=== PATIENT | female | born 1940 | race Caucasian/White ===

== ENCOUNTER 2016-09-16 18:50 | Inpatient (IN) | payer MEDICARE, OTHER ==
[~2016-09-16] VITALS: Ht 165.1 cm; Wt 88.9 kg
[2016-09-16 19:11] VITALS: BP 153/74; PULSE 83; RESP 16; O2SAT 93
--- NOTE | 2016-09-16 19:24 | ED.REPORT ---
HPI-Altered Mental Status Date of Service Sep 16, 2016 ED Provider: Charles Gómez MD Pt is a 76 year old female with a history of right hip replacement, HTN, DM, lap band, and cancer (5x) who presents to the ED via EMS for confusion onset yesterday. Family c/o associated change in mental status. They also report low back pain that they associate with prior surgery. EMS report fever. The family denies vomiting, SOB, cough, headache, and abdominal pain. The EMS found the pt slumped over while on the commode next to her bed. Family describes the pt's change in mental status as "incoherent and staring out into space." Also had a temp at home of 100>2 per EMS. Her family members also state that the pt was prescribed Lorazepam (1 mg up to 3x a day), but they suggest that she may be taking more due to the pt's forgetfulness. Nursing Notes Stated Complaint: ALTERED MENTAL STATUS Chief Complaint: Neuro Symptoms/ Deficits Nursing Notes Reviewed: Yes Allergies: Coded Allergies: No Known Allergies (Verified , 10/30/03) Uncoded Allergies: NKA (Allergy, Unknown, 10/30/03) NKFA (Allergy, Unknown, 10/30/03) No Known Allergies (Allergy, Unknown, 10/30/03) General Time Seen by MD: 19:23 Chief Complaint Confused Hx Obtained From: Patient, Spouse, EMS Arrived By: Ambulance Sudden in Onset?: No Onset Occurred: 5 - 8 hours ago Symptom Duration: Since onset Location: : Back lower Quality: Painful Severity: Current: Moderate Severity: Maximum: Moderate Recent Healthcare: No recent doctor visit, No recent hospitalization Similar Sx Previous: No Past Medical History Past Medical History Notes: PCP - Ashia Blank Past Medical History arthritis frequent UTIs "longstanding history of constipation" [place] 1x - 1980 Lap band - can only eat liquids Skin cancer (5x) - thyroid, skin on leg, ovarian Sleep apnea - uses CPAP Reports: Diabetes mellitus, Hypertension Reports: Depression Past Surgical History Back Reports: Hysterectomy Family History non-contributory Smoking History Never Smoker Social History Alcohol Use: Denies alcohol use Drug Use: Denies drug use Ambulatory Status Independent Review of Systems Constitutional: Reports: Fever Respiratory: Denies: Non-productive cough, Shortness of breath GI: Denies: Abdominal pain, Vomiting Neurologic: Reports: Problem walking, Denies: Headache Psychiatric: Reports: Change mental status, Confusion Complete sys rev & neg: except as marked. Musculoskeletal: Reports: Back pain Physical Exam Initial Vital Signs Vital Signs (First) Date Time Temp Pulse Resp B/P Pulse Ox O2 Delivery O2 Flow Rate FiO2 09/16/16 19:11 37.2 83 16 153/74 93 Room Air Initial VS: Reviewed ENT: Mucous membranes moist Extremities: Vascular intact, Neuro intact Skin: Warm, Dry, No cyanosis General/Constitutional: Awake, Alert Head / Eyes: Atraumatic, Normocephalic, PERRL Neck: Supple Respiratory / Chest: Atraumatic, Breath sounds NL, Breath sounds = bilat Cardiovascular: Heart rate NL, Regular rhythm Heart Sounds / Murmur: Positive: Systolic murmur present.. (III/ - upper left sternal border) NEUROLOGIC: Oriented x1. Motor intact. Abdomen: Atraumatic, Soft, Non-tender, BS normoactive Interpretation & Diagnostics Lab Results Interpretation Result Diagram: 09/16/16 1900 09/16/16 1900 Test 09/16/16 19:00 09/16/16 20:37 09/16/16 21:36 White Blood Count 19.9th/mm3 (3.8-10.1) Red Blood Count 5.06mil/mm3 (3.90-5.20) Hemoglobin 13.3g/dL (12.0-15.6) Hematocrit 41.6% (35.0-46.0) Mean Corpuscular Volume 82.2fL (81-100) Mean Corpuscular Hemoglobin 26.3pg (27.0-35.0) Mean Corpuscular Hemoglobin Concent 32.0% (32.0-37.0) Red Cell Distribution Width 14.7% (12.3-15.4) Platelet Count 345bil/L (150-400) Neutrophils (%) (Auto) 77.5% (40-74) Lymphocytes (%) (Auto) 14.5% (14-46) Monocytes (%) (Auto) 7.2% (4-12) Eosinophils (%) (Auto) 0% (0-5) Basophils (%) (Auto) 0.3% (0-3) Sodium Level 137mEq/L (134-144) Potassium Level 3.9mEq/L (3.5-5.2) Chloride Level 94mEq/L (97-108) Carbon Dioxide Level 22mmol/L (18-29) Blood Urea Nitrogen 12mg/dL (8-27) Creatinine 0.77mg/dL (0.57-1.00) Estimat Glomerular Filtration Rate 104mL/min (>59) Glucose Level 168mg/dL (60-99) Calcium Level 9.3mg/dL (8.5-10.1) Total Bilirubin 0.7mg/dL (0.0-1.2) Aspartate Amino Transf (AST/SGOT) 35U/L (0-50) Alanine Aminotransferase (ALT/SGPT) 10U/L (0-32) Alkaline Phosphatase 129U/L (25-165) Total Protein 8.3g/dL (6.4-8.4) Albumin 3.6g/dL (3.4-5.0) Procalcitonin 0.16ng/mL (0.00-0.08) Alcohols < 10mg/dL (0-10) Urine Color Yellow (YELLOW) Urine Appearance Clear (CLEAR,HAZY) Urine pH 6.0 (5.0-8.0) Urine Specific [place] 1.015 (1.003-1.035) Urine Protein Negativemg/dL (NEG,TRACE) Urine Glucose (UA) Negativemg/dL (NEGATIVE) Urine Ketones Negativemg/dL (NEGATIVE) Urine Occult Blood Trace (NEGATIVE) Urine Nitrite Negative (NEGATIVE) Urine Bilirubin Negative (NEGATIVE) Urine Urobilinogen 1.0mg/dL (NORMAL) Urine Leukocyte Esterase Negative (NEGATIVE) Urine RBC 0-2/hpf (0-2) Urine WBC 0-5/hpf (0-5) Urine Epithelial Cells Moderate/hpf (NONE-MOD) Urine Crystals None seen (NONE SEEN) Urine Bacteria Many/hpf (NONE-FEW) Urine Hyaline Casts None/lpf (NONE) Urine Granular Casts None seen (NONE SEEN) Urine Waxy Casts None seen (NONE SEEN) Urine Red Blood Cell Casts None seen (NONE SEEN) Urine White Blood Cell Casts None seen (NONE SEEN) Urine Mucus None seen (None Seen) Urine Trichomonas None seen (NONE SEEN) Urine Yeast None (NONE SEEN) Urinalysis Comment None Urine Culture Reflexed Indicated Lactic Acid Level 1.5mmol/L (0.4-2.0) ECG Interpretation ECG Interpretation: Sinus rhythm with a rate of 81. RBBB and LAFB. No acute changes. Time: 19:35 Interpreted by: ED physician X-Ray Chest Interpretation Chest Xray Interpretation: IMPRESSION: Acute disease is not seen a semiupright portable chest. Probable small hiatal hernia. Dictated by: Chava Tavera M.D. on 09/16/2016 at 19:47 View: Portable, 1 view Interpretation / Wet Read by: Interpret - Radiologist CT Head Interpretation IMPRESSION: No acute intracranial abnormality is seen. Moderate atrophy and microvascular ischemic change from age and is present. Dictated by: Chava Tavera M.D. on 09/16/2016 at 20:02 Study: Head CT no contrast Interpretation / Wet Read by: Interpret - Radiologist Re-Eval/Medical Decision Med Decision/Clinical Course 76-year-old female with decreased mental status and reportedly a fever. Here she definitely has some decreased mental status, neuro exam is otherwise nonfocal. Meningitis was considered however she has no photophobia and no stiff neck no headache or vomiting. I felt based on that information pursuing an LP was unlikely to be beneficial. Cultures have been obtained, admitted to hospitalist service for further evaluation. Source of Hx: Old records Re-Evaluation/Progress #1: Time of Eval: 20:22 Re-Evaluation/Progress Note: Pt rechecked. Informed family of plan for admission. Family understands and agrees with plan for admission. Code status discussed with family; they want full code. All questions addressed. Re-Evaluation/Progress #2: Time of Eval: 22:36 Re-Evaluation/Progress Note: Pt rechecked. Updated family on progress involving pt's care. All questioned addressed. Consultation : Referral / Consult Name: Shari Mckinnon MD Call Returned at: 23:00 Power Plant Inspector: Will see patient, Agrees with eval, Agrees with plan, Accepts admit Counseled Regarding: Diagnosis, Lab results, Need for admission Patient Discharge & Departure Impression: Primary Impression: Acute encephalopathy Disposition: ADMITTED TO HOSPITAL Discharge Condition All VS Reviewed: Yes Condition: Stable Referrals: Ashia Blank PA-Cibprashant Attestation Portions of this note were transcribed by Jerri Jane. I, Dr. Gómez personally performed the history, physical exam and medical decision-making; I reviewed and confirmed the accuracy of the information in the transcribed note. Signed by : Ayan Jimenez, 09/16/16 and 22:50. copies to: Ashia Blank PA-C, Donald L MD Sep 16, 2016 19:24 Jerri Damian Sep 16, 2016 20:21
[2016-09-16 19:37] LABS: BASOPHILS % (AUTO) 0.3 % (0-3); EOSINOPHILS % (AUTO) 0 % (0-5); MONOCYTES % (AUTO) 7.2 % (4-12); Mean Corpuscular Hemoglobin 26.3 pg (27.0-35.0); Mean Corpuscular Volume 82.2 fL (81-100); NEUTROPHILS % (AUTO) 77.5 % (40-74); Platelet Count 345 bil/L (150-400)
--- NOTE | 2016-09-16 19:49 | DRSVH ---
PROCEDURE: X-RAY CHEST ONE VIEW, PORTABLE ([id number]) INDICATIONS: altered mental status TECHNIQUE: One view of the chest was acquired. COMPARISON: [facility], , CHEST 1VW (PORTABLE), 07/23/2009, 14:12. FINDINGS: Surgical changes and devices: phototypesetting equipment monitor leads are seen over the chest. Lungs and pleura: No pleural effusions or pneumothorax. Lungs are clear. Mediastinum: Mediastinal contours appear normal. Lucency behind the heart would suggest small hiatal hernia is present. Heart size is normal. Bones and chest wall: No suspicious bony lesions. Overlying soft tissues appear unremarkable. IMPRESSION: Acute disease is not seen a semiupright portable chest. Probable small hiatal hernia. Dictated by: Chava Tavera M.D. on 09/16/2016 at 19:47 Approved by: Chava Tavera M.D. on 09/16/2016 at 19:48
--- NOTE | 2016-09-16 20:06 | DRSVH ---
PROCEDURE: CT BRAIN WITHOUT CONTRAST ([id number]) INDICATIONS: altered mental status TECHNIQUE: Noncontrast 4.5 mm thick angled axial sections acquired from the foramen magnum to the vertex, with c oronal reformats. COMPARISON: None. FINDINGS: Image quality: Excellent. CSF spaces: Basal cisterns are patent. No extra-axial fluid collections. The ventricles are symmet alexander in size and shape. Brain: No intracranial bleeds or masses. There is cerebral volume loss for age, with resultant vent ricular and sulcal prominence. There are periventricular and deep white matter chronic small vessel ischemic changes. There is intracranial internal carotid artery atherosclerosis. Skull and face: Calvarium and visualized facial bones appear intact, without suspicious lesions. Sinuses: Visualized sinuses and mastoids are clear. IMPRESSION: No acute intracranial abnormality is seen. Moderate atrophy and microvascular ischemic change from age and is present. Dictated by: Chava Tavera M.D. on 09/16/2016 at 20:02 Approved by: Chava Tavera M.D. on 09/16/2016 at 20:04
[2016-09-16 21:08] LABS: APPEARANCE,URINE CLEAR (CLEAR,HAZY); COLOR,URINE YELLOW (YELLOW); OCCULT BLOOD,URINE TRACE (NEGATIVE)
[2016-09-16 21:58] VITALS: BP 161/72; PULSE 74; RESP 18; O2SAT 98
[2016-09-16] MEDS ORDERED: Piperacillin-Tazo 3.375 Gm Inj 3.375 GM in Dextrose 5% Minibag Plus 50 ML IV ONE (22:50)
[2016-09-16 23:52] VITALS: BP 159/56; PULSE 78; RESP 20; O2SAT 98
[2016-09-17] VITALS (10 sets, daily range): BP systolic 107–168; BP diastolic 59–91; PULSE 60–88; RESP 17–20; O2SAT 91–98
[2016-09-17] MEDS ORDERED: Alum-Mag Hydrox-Simeth 30 mL Suspension PO PRN (00:05)
[2016-09-17] MEDS ORDERED: Ondansetron 2 mg/mL 2 mL Inj IVPUSH PRN (00:05)
[2016-09-17] MEDS ORDERED: Polyethylene Glycol (PEG) 17 Gm Powder PO PRN (00:05)
--- NOTE | 2016-09-17 01:44 | NUR ---
admit: admit assessment difficult to complete, pt is alert to herself at this time. pt able to answer some of the admit questions, otherwise recall values, and H&P use to complete questions. pt on RA CPOX in place 92% on RA. pt denies pain. pt is not able to recall medications she takes at home, no family at bedside. will continue to monitor.
--- NOTE | 2016-09-17 06:02 | PCM.HPMED ---
Subjective Date of Service Sep 17, 2016 Primary Provider: Admitting Physician: Shari Mckinnon MD Primary Care Physician: Noprommel Attending Physician: Shari Mckinnon MD Admit Status: From the Emergency Department Chief Complaint: Altered mental status History of Present Illness: Svitlana Ireland is a 76-year-old woman with a history of hypertension, diabetes, sleep apnea, frequent UTIs, lap band and chronic constipation who presented to the emergency department via EMS with increased confusion for the past 1-2 days. History obtained via chart review due to patient condition and family in the emergency department. At presentation family expressed concerns regarding the patient's memory and her lorazepam. They felt she may be taking more than 3mg a day due to her forgetfulness. Patient was reportedly prescribed 1mg up to three times a day of Lorazepam. Patient was reported found by EMS slumped over on the commode and noted by family members to have gait disturbances, a blank stare with slurred, incoherent speech. Additionally, the family denied difficulty breathing, vomiting, or cough. abdominal pain. In the ED vitals: temp 37.2, BP 153/74, HR 83, RR 16, SpO2 93% on room air. Labs significant for a leukocytosis (WBC 19.9) with slight left shift, mildly elevated procalcitonin 0.16, lactic acid wnl (1.5), hyperglycemia (glucose 168) , and urinalysis without signs of infection. ECG showed sinus rhythm with a rate of 81, RBBB and LAFB with no acute changes. Chest Xray was negative for acute disease and showed a possible hiatal hernia. CT Head Interpretation showed no acute intracranial abnormalities, moderate atrophy and microvascular ischemic changes. Review of Systems: Unable to perform complete review of systems secondary to patient condition. Allergies Coded Allergies: No Known Allergies (Verified , 10/30/03) Home Medications As per most recent record. Medication rec not completed from overnight at the time of admission. AM team to confirm medications and order as appropriate. Review of [facility] records: bupropion 100mg bid hydrocodone-acetaminophen 5-325mg Q4h levothyroxine 137mcg daily atorvastatin 10mg daily lorazepam 1mg po TID prn metformin 500mg once daily PMH Diabetes mellitus Hypertension Depression Hypothyroidism Arthritis Frequent UTIs Chronic constipation Myocardial infarction with stent placed- 1980 Lap band - can only eat liquids Skin cancer (5x) - thyroid, skin on leg, ovarian Sleep apnea - uses home CPAP Surgical History Back surgery Right hip replacement Hysterectomy Lap band Family History Unable to obtain family history due to patient condition. Social History Hx Alcohol Use: No Hx Substance Use: No Hx Tobacco Use: No Smoking Status: Never Smoker Living Arrangement: with Family Exam Vital Signs Vital Sign - Last Date Time Temp Pulse Resp B/P Pulse Ox O2 Delivery O2 Flow Rate FiO2 09/16/16 23:52 78 20 159/56 98 Room Air 09/16/16 21:58 36.8 Exam General: Awake, confused but cooperative and in no acute distress HEENT: Normocephalic, atraumatic. External ears without defect. Pupils equal, round, and reactive to light and accommodation. Anicteric sclerae, moist conjunctivae, and no lid lag. Moist mucosa. Neck: Supple with full range of motion. No jugular venous distension. No lymphadenopathy or thyromegaly. Cardiovascular: Regular rate and rhythm with 2/6 systolic murmur heard best at left sternal border, no rubs or gallops appreciated. Pulmonary: Clear to auscultation bilaterally with no crackles, wheezes, or rhonchi. Normal respiratory effort with no use of accessory muscles. Abdomen: Bowel tones present. Soft, nontender, nondistended. No masses appreciated. Extremities: Trace edema of the ankles bilaterally, no cyanosis or clubbing. Scattered ecchysmosis at various stages of healing upper/lower extremities as well as superficial abrasions with eschar. No erythema, ulcerations or obvious rashes noted. Skin: Warm and dry with normal texture and turgor. No rash, ulcers, or subcutaneous nodules appreciated. Neurological: Alert and oriented only to self, cooperative and able to follow commands. CN II-XII intact, no dysarthria, incoherent sentences. Generalized weakness of upper/lower extremities with 3/5 strenth, diminished tone without focal deficit. Sensation intact, reflexes symmetric and within normal limits. No known gait impairment. Psychiatric: Unable to assess due to patient condition. Lab and Diagnostics Labs Laboratory Tests Test 09/16/16 19:00 09/16/16 20:37 09/16/16 21:36 White Blood Count 19.9th/mm3 (3.8-10.1) Red Blood Count 5.06mil/mm3 (3.90-5.20) Hemoglobin 13.3g/dL (12.0-15.6) Hematocrit 41.6% (35.0-46.0) Mean Corpuscular Volume 82.2fL (81-100) Mean Corpuscular Hemoglobin 26.3pg (27.0-35.0) Mean Corpuscular Hemoglobin Concent 32.0% (32.0-37.0) Red Cell Distribution Width 14.7% (12.3-15.4) Platelet Count 345bil/L (150-400) Neutrophils (%) (Auto) 77.5% (40-74) Lymphocytes (%) (Auto) 14.5% (14-46) Monocytes (%) (Auto) 7.2% (4-12) Eosinophils (%) (Auto) 0% (0-5) Basophils (%) (Auto) 0.3% (0-3) Sodium Level 137mEq/L (134-144) Potassium Level 3.9mEq/L (3.5-5.2) Chloride Level 94mEq/L (97-108) Carbon Dioxide Level 22mmol/L (18-29) Blood Urea Nitrogen 12mg/dL (8-27) Creatinine 0.77mg/dL (0.57-1.00) Estimat Glomerular Filtration Rate 104mL/min (>59) Glucose Level 168mg/dL (60-99) Calcium Level 9.3mg/dL (8.5-10.1) Total Bilirubin 0.7mg/dL (0.0-1.2) Aspartate Amino Transf (AST/SGOT) 35U/L (0-50) Alanine Aminotransferase (ALT/SGPT) 10U/L (0-32) Alkaline Phosphatase 129U/L (25-165) Total Protein 8.3g/dL (6.4-8.4) Albumin 3.6g/dL (3.4-5.0) Procalcitonin 0.16ng/mL (0.00-0.08) Alcohols < 10mg/dL (0-10) Urine Color Yellow (YELLOW) Urine Appearance Clear (CLEAR,HAZY) Urine pH 6.0 (5.0-8.0) Urine Specific [place] 1.015 (1.003-1.035) Urine Protein Negativemg/dL (NEG,TRACE) Urine Glucose (UA) Negativemg/dL (NEGATIVE) Urine Ketones Negativemg/dL (NEGATIVE) Urine Occult Blood Trace (NEGATIVE) Urine Nitrite Negative (NEGATIVE) Urine Bilirubin Negative (NEGATIVE) Urine Urobilinogen 1.0mg/dL (NORMAL) Urine Leukocyte Esterase Negative (NEGATIVE) Urine RBC 0-2/hpf (0-2) Urine WBC 0-5/hpf (0-5) Urine Epithelial Cells Moderate/hpf (NONE-MOD) Urine Crystals None seen (NONE SEEN) Urine Bacteria Many/hpf (NONE-FEW) Urine Hyaline Casts None/lpf (NONE) Urine Granular Casts None seen (NONE SEEN) Urine Waxy Casts None seen (NONE SEEN) Urine Red Blood Cell Casts None seen (NONE SEEN) Urine White Blood Cell Casts None seen (NONE SEEN) Urine Mucus None seen (None Seen) Urine Trichomonas None seen (NONE SEEN) Urine Yeast None (NONE SEEN) Urinalysis Comment None Urine Culture Reflexed Indicated Lactic Acid Level 1.5mmol/L (0.4-2.0) Microbiology 09/16/16 Blood Culture, Received Pending 09/16/16 Urine Culture, Received Pending Result Diagram: 09/16/16 1900 09/16/16 1900 X-Rays, CTs and MRIs (09/17/16) CT BRAIN WITHOUT CONTRAST IMPRESSION: No acute intracranial abnormality is seen. Moderate atrophy and microvascular ischemic change from age and is present. Dictated and approved by: Chava Tavera M.D. on 09/16/2016 at 20:02 (09/16/16) X-RAY CHEST ONE VIEW, PORTABLE IMPRESSION: Acute disease is not seen a semiupright portable chest. Probable small hiatal hernia. Dictated and approved by: Chava Tavera M.D. on 09/16/2016 at 19:47 Assessment & Plan Svitlana Ireland is a 76-year-old woman with a history of hypertension, diabetes, sleep apnea, frequent UTIs, and lap band who presented to the emergency department via EMS with increased confusion for the past 1-2 days. Admitted for further evaluation and management of altered mental status. Altered mental status. Present on admission. Active -Likely secondary to overdosing of home lorazepam and/or underlying infection. At presentation family noted increasing confusion and altered consciousness correlated with recent lorazepam use and felt that she may be taking more than prescribed due to memory issues. -UA without obvious sings of infection, blood alcohol <0.10 -CT brain showed no acute intracranial abnormality -Blood/urine cultures pending -Repeat CMP, CBC in the morning Acute leukocytosis. Present on admission. Active. -Unknown source of infection. Patient reported by EMS to be febrile in the filed ; afebrile here thus far. She has a history of recurrent UTIs and WBC on admission 19.9 with slight left shift and a procalcitonin of 0.16. Urinarlysis at presentation was negative. Chest xray with no acute disease -Blood cultures, pending and patient started on Zosyn to cover for possible aspiration due to decreased level of consciousness prior to presentation and history of diverticulitis -Lactic acid within normal limits -Will continue zosyn overnight -Repeat CBC, procalcitonin Diabetes mellitus, chronic. Present on admission. Presumed stable. -Review of [facility] records: Metformin 500mg daily. Will need to confirm as med rec not complete at time of admission and unable to obtain additional information due to patient condition. -Will hold Metformin -Low-dose correctional insulin ordered Hypertension, chronic. Present on admission. Active. -BP on admission 153/74 and patient not taking anti-hypertensive medication per review of outpatient records. Will need to confirm as med rec not complete at time of admission and unable to obtain additional information due to patient condition. -Consider starting ACEi Hyperlipidemia, chronic. Present on admission. Active. -Review of [facility] records: atorvastatin 10mg daily. Will need to confirm as med rec not complete at time of admission and unable to obtain additional information due to patient condition. Hypothyroidism, chronic. Present on admission. Presumed stable. -Review of [facility] records: levothyroxine 137mcg daily. Will need to confirm as med rec not complete at time of admission and unable to obtain additional information due to patient condition. History of depression, chronic. Present on admission. Presumed stable. -Review of [facility] records: lbupropion 100mg bid and lorazepam 1mg po TID prn. -Will hold lorazepam in setting of altered mental status and family report that patient may have been taking too much lorazepam due to memory issues. -Day term to resume buproprion as appropriate Lap band in place, chronic. Present on admission. Presumed stable. -Patient reportedly can only eat liquids and per chart review has a history of diverticulitis as well as chronic constipation. -Consider consult to nutrition in the morning History of sleep apnea, reported use of home CPAP. Present on admission. -Supplemental oxygen as needed overnight -Will need to contact family to bring in home CPAP PRN: Acetaminophen-fever/headache/mild/moderate pain Antiemetics, as needed Bowel regimen, as needed. Disposition: Patient admitted under inpatient status with expected length of stay > 2 midnights for severity of present symptoms, complexities of treatment plan and risk for adverse event. Pain Evaluation: Adequate Pain Control GI Prophylaxis: Not indicated VTE Prophylaxis Indicated: Meets Criteria for Anticoag Therapy VTE Prophylaxis: Sub-Q Heparin (Unfractionated) Resuscitation Status: CPR: Attempt Resuscitation Attending Statement Pt seen and examined by myself and agree with above plan. Yamilet Vegas DO Sep 17, 2016 00:05 Shari Mckinnon MD Sep 27, 2016 06:45 Yamilet Vegas DO Sep 17, 2016 00:05
[2016-09-17] MEDS ORDERED: Glucose 40% Oral Gel 15 Gm Tube PO PRN (06:10)
[2016-09-17] MEDS: Insulin LISPRO 300 Unit/3 mL Inj SUBQ SCH ×4 (07:47→20:29)
[2016-09-17] MEDS ORDERED: BUPR100T15 PO (07:53)
[2016-09-17] MEDS ORDERED: ATRV10T PO (07:55)
[2016-09-17] MEDS ORDERED: METF500T4 PO (07:57)
[2016-09-17] MEDS ORDERED: LORA1TAB PO (07:58)
[2016-09-17] MEDS ORDERED: LEVO137T2 PO (08:00)
[2016-09-17 08:12] LABS: BASOPHILS % (AUTO) 0.2 % (0-3); EOSINOPHILS % (AUTO) 0 % (0-5); MONOCYTES % (AUTO) 9.7 % (4-12); Mean Corpuscular Hemoglobin 26.5 pg (27.0-35.0); Mean Corpuscular Volume 82.7 fL (81-100); NEUTROPHILS % (AUTO) 82.2 % (40-74); Platelet Count 227 bil/L (150-400)
--- NOTE | 2016-09-17 17:37 | NUR ---
NURSING DAYS 7-7 Patient WBC 17.8,blood and urine pending, BP 135/83. Patient appears confused at time and poor historian on med rec, will need to call [facility] tomorrow. Telemetry SR 80's, RA (very dirty home CPAP machine). Patient has Hx of banding procedure and limited ADA diet, eating little. Blood sugar well controlled today. Price catheter inserted due to retention and draining dark urine. Dry flaky skin. PO pain medications for chronic back pain. S/L, Observations patient for clearing taking to much Ativan??
[2016-09-18] VITALS (8 sets, daily range): BP systolic 116–153; BP diastolic 67–81; PULSE 52–71; RESP 18; O2SAT 91–96
[2016-09-18] MEDS ORDERED: 0.9% Sodium Chloride 1,000 ML IV SCH (05:40)
--- NOTE | 2016-09-18 05:56 | NUR ---
Pain, Urine output: Pain reported early /, currently at 8/10 to lower back. Pain level increasing through the night despite receiving pain medication about every 4 hours. Much increased pain with turning in bed. Pt also with low urine output tonight. Price in place with 100 mls out through the night. MD notified of pain and urine output, K pad ordered for pain and IV fluid ordered/infusing.
[2016-09-18 06:34] LABS: BASOPHILS % (AUTO) 0.2 % (0-3); EOSINOPHILS % (AUTO) 0 % (0-5); Mean Corpuscular Hemoglobin 26.9 pg (27.0-35.0); Mean Corpuscular Volume 83.8 fL (81-100); Platelet Count 237 bil/L (150-400)
[2016-09-18 06:54] LABS: Magnesium 1.9 mg/dL (1.6-2.6)
[2016-09-18 07:15] LABS: INR 0.97 ratio
[2016-09-18] MEDS: Insulin LISPRO 300 Unit/3 mL Inj SUBQ SCH ×4 (07:52→22:00)
--- NOTE | 2016-09-18 12:47 | DRSVH ---
PROCEDURE: MRI LUMBAR SPINE WITH AND WITHOUT CONTRAST ([id number]) INDICATIONS: fever, leukocytosis, lower back pain TECHNIQUE: Noncontrast sagittal T1 spin echo and T2 fast spin echo, sagittal STIR, axial T1 and T2 fast spin ech o through the lumbar spine. In cases with scoliosis, additional coronal T2 fast spin echo may be per formed. After the administration of contrast, sagittal and axial T1 spin echo with fat saturation th rough the lumbar spine. COMPARISON: [facility], CT, ABD/PELVIS W&WO CON (PNL), 09/13/2012, 12:35. [facility], CR, XR ABD ACUTE SERIES 3VW, 11/29/2014, 9:21. [facility]ound, US, RETR OPERITONEAL SONOGRAM, 12/12/2011, 14:33. [facility], [place], CR, XR LS SPINE 2-3V, 08/25/2015, 11:57 AM. FINDINGS: Image quality: Excellent. Alignment and curvature: Patient is status post a, L3, and L5 posterior fusion with paired fixation r ods. Patient is status post L4-5 discectomy. There is trace anterolisthesis of L4-5. Marrow: Marrow is difficult to characterize given extensive postsurgical changes. A severe wedge comp ression deformity is present at the base of L1 and the superior L2 endplate, unchanged from the plain film dated 08/25/15. These findings are likely similar to the CT of the abdomen dated 09/13/12 as well . No new wedge compression deformities. No abnormal marrow signal or enhancement. Spinal cord: Conus medullaris terminates at the T12 level. Visualized spinal cord demonstrates norm al signal, without suspicious enhancement. Paraspinous soft tissues: No paravertebral masses or abnormal enhancement. L1-L2: Severe L1 and inferior endplate and severe L2 superior endplate compression deformities likely unchanged from the plain film dated 08/25/15. There is increased fluid signal within the intervertebr al disc space; however there is no associated enhancement within this region. Of note, there is marke d susceptibility artifact from the adjacent hardware. There is bilateral moderate neural foraminal na rrowing and severe canal stenosis. L2-L3: Moderate disc desiccation and height loss. Broad-based disc bulge. Moderate canal stenosis. Th e left neural foramen is poorly characterize from susceptibility artifact. There is moderate right fo raminal stenosis. L3-L4: Mild disc desiccation and height loss. Broad-based disc bulge. No canal stenosis. No neural fo raminal narrowing. L4-L5: Discectomy and trace anterolisthesis. No canal stenosis. Moderate right neural foraminal narro wing. No left foraminal stenosis. L5-S1: Mild disc desiccation and height loss. Broad-based disc bulge. No canal stenosis. Moderate rig ht foraminal narrowing with mild flattening of the exiting nerve root. IMPRESSION: 1. Somewhat limited study given marked susceptibility artifact from the extensive hardware throughout the lumbar spine. 2. No suspicious marrow enhancement or enhancement of the paraspinous soft tissues to suggest infecti on; however given the limitations of the study, if there is high clinical suspicion for occult infect ion, nuclear medicine study may be helpful to further characterize findings. 3. Severe degenerative changes and vertebral body height loss at L1-L2. These findings are similar in extent to the study dated 08/24/16. Additionally, when these findings are compared with the CT of the abdomen dated 09/13/12, the extent of degenerative changes likely similar at the L1-2 level. 4. Severe canal stenosis at L1-L2 and moderate canal stenosis at L2-3. 5. Moderate bilateral foraminal narrowing at L1-L2, and moderate right foraminal narrowing at L2-3, L 4-5, and L5-S1. Dictated by: Miriam Haines M.D. on 09/18/2016 at 10:46 Approved by: Miriam Haines M.D. on 09/18/2016 at 12:45
--- NOTE | 2016-09-18 16:35 | NUR ---
Pain management/Output Pt's back pain has been doing better this afternoon, with pain being managed with PO tylenol. Urine output continues to be a little low, despite fluids running. 350cc urine in 8 hrs. Will continue to monitor.
--- NOTE | 2016-09-18 17:29 | PCM.PNMED ---
Subjective Date of Service Sep 18, 2016 Subjective Denies any new issues/complaints Exam Vital Signs Vital Sign - Last Date Time Temp Pulse Resp B/P Pulse Ox O2 Delivery O2 Flow Rate FiO2 09/18/16 13:07 36.5 58 18 132/79 92 Room Air 09/18/16 00:48 1.00 Intake and Output 09/17/16 09/17/16 09/18/16 Cumulative From/Thru 15:00 23:00 07:00 09/16/16 19:11 - 09/18/16 06:18 Intake Total 120 ml 0 ml 120 ml Output Total 450 ml 100 ml 550 ml Balance -330 ml -100 ml -430 ml Intake Oral 120 ml 0 ml 120 ml Output Urine Total 450 ml 100 ml 550 ml # Voids 1 2 General: No Acute Distress, Other (seems more lethargic and less verbal than yesterday) Head: Normal Eyes: PERRLA, EOMI, Scleral Anicteric Nose: Mucous Membr Moist/[place] Mouth: Mucous Membr Moist/[place] Neck: Supple Chest & Lungs: Chest Wall Normal, Clear to auscultation & percussion Cardiovascular: Regular Rate/Rhythm Pulses: NL carotid, radial, femoral, DP, PT Abdomen: Tender, Non-distended, Normoactive bowel tones, Soft Extremities: No cyanosis/clubbing/edma bilat Neurological: Other (seems more confused and more lethargic than yesterday. Full neuro exam limited 2ndry to altered mental status but overall seems non- focal) IVs and Medications Medications Reviewed: Medications were reviewed in detail Lab and Diagnostics Result Diagram: 09/18/16 0608 09/18/16 0608 X-Rays, CTs and MRIs (09/17/16) CT BRAIN WITHOUT CONTRAST IMPRESSION: No acute intracranial abnormality is seen. Moderate atrophy and microvascular ischemic change from age and is present. Dictated and approved by: Chava Tavera M.D. on 09/16/2016 at 20:02 (09/16/16) X-RAY CHEST ONE VIEW, PORTABLE IMPRESSION: Acute disease is not seen a semiupright portable chest. Probable small hiatal hernia. Dictated and approved by: Chava Tavera M.D. on 09/16/2016 at 19:47 Assessment & Plan 76-year-old woman with a history of hypertension, diabetes, sleep apnea, frequent UTIs, and lap band who presented to the emergency department via EMS with increased confusion for the past 1-2 days. Admitted for further evaluation and management of altered mental status. # Acute altered mental status likely acute encephalopathy. Present on admission. ongoing -Likely secondary to medication side effect (lorazepam) and/or underlying infection. At presentation family noted increasing confusion and altered consciousness correlated with recent lorazepam use and felt that she may be taking more than prescribed due to memory issues. -UA without obvious sings of infection, blood alcohol <0.10 -CT brain showed no acute intracranial abnormality -Repeat CMP, CBC in the morning -Lumbar spine MRI to rule out abscess/infection given ongoing back pain, leukocytosis and no other obvious source of infection # Acute leukocytosis. Present on admission. Active. -Unknown source of infection. Patient reported by EMS to be febrile in the filed ; afebrile here thus far. -Urinarlysis at presentation was negative. Chest xray with no acute disease -Blood cultures, pending -Post one dose of IV Zosyn in ED to cover for possible aspiration -Abx not continued due to negative CXR and no obvious source of infection at this time # Diabetes mellitus, chronic. Present on admission. Presumed stable. -Hold Metformin -Low-dose correctional insulin ordered # Hypertension, chronic. Present on admission. Stable. -Continue with home dose Lisinopril. # Hyperlipidemia, chronic. Present on admission. Presumed stable. -Continue with home meds. # Hypothyroidism, chronic. Present on admission. Presumed stable. -Continue with home meds # History of depression, chronic. Present on admission. Presumed stable. -Continue with home meds -Hold lorazepam in setting of altered mental status # Lap band in place, chronic. Present on admission. Presumed stable. -Consider CT Abd if Lumbar MRI negative and source of infection still unclear. # History of sleep apnea, reported use of home CPAP. Present on admission. -Supplemental oxygen as needed overnight -Home CPAP PRN: Acetaminophen-fever/headache/mild/moderate pain Antiemetics, as needed Bowel regimen, as needed. Dispo: 2-3 days GI Prophylaxis: Not indicated VTE Prophylaxis: Sub-Q Heparin (Unfractionated) Resuscitation Status: CPR: Attempt Resuscitation Jarad Oliver Sep 18, 2016 17:29 Acetaminophen-fever/headache/mild/moderate pain Antiemetics, as needed Bowel regimen, as needed. Disposition: Patient admitted under inpatient status with expected length of stay > 2 midnights for severity of present symptoms, complexities of treatment plan and risk for adverse event. GI Prophylaxis: Not indicated VTE Prophylaxis: Sub-Q Heparin (Unfractionated) Resuscitation Status: CPR: Attempt Resuscitation Jarad Oliver Sep 18, 2016 17:29
[2016-09-18] MEDS ORDERED: 0.9% Sodium Chloride 1,000 ML IV ONE (17:32)
--- NOTE | 2016-09-18 20:30 | NUR ---
OFF UNIT Pt off unit for CT scan.
--- NOTE | 2016-09-18 20:44 | NUR ---
RETURN to Unit
--- NOTE | 2016-09-18 21:15 | DRSVH ---
PROCEDURE: CT CHEST, ABDOMEN AND PELVIS [facility] CONTRAST ([id number]) INDICATIONS: leukocytosis, abd pain, altered mental status TECHNIQUE: After the administration of oral and intravenous contrast, 5 mm thick sections acquired from the lung apices to the symphysis. 5 mm coronal and sagittal reformats were performed, with additional 7 mm c oronal MIP reformats through the lungs. For radiation dose reduction, the following was used: autom ated exposure control, adjustment of mA and/or kV according to patient size. COMPARISON: [facility], CT, ABD/PELVIS W&WO CON (PNL), 09/13/2012, 12:35. FINDINGS: Image quality: Excellent. CHEST: Lungs and pleura: There is several scattered streaky opacities within the lungs predominantly within the left lower and inferior left upper lobes. No pleural effusions or pneumothorax. Central and hermelindo pheral airways appear patent and normal in caliber. Mediastinum: Heart size is normal. No pericardial effusion. No mediastinal or hilar adenopathy by size criteria. Thoracic aorta and central pulmonary arteries are normal in size. Esophagus is mallory l in caliber. No hiatal hernia. Chest wall: No axillary or supraclavicular adenopathy by size criteria. Thyroid gland is not visual ized. ABDOMEN: Solid organs: Liver is mildly enlarged. The spleen is normal in size and enhancement. Gallbladder d emonstrates dependent calcifications without wall thickening. Biliary system is non dilated. Pancre as enhances normally. There is unchanged nodularity of the left adrenal gland. Kidneys demonstrate no rmal size without hydronephrosis. There are patchy areas of decreased enhancement within the left ki dney most significant in the upper and mid poles. Renal cysts are also noted. Peritoneum and bowel: Bowel loops demonstrate normal wall thickness and caliber. No free fluid or a ir. Moderate stool consistent with constipation. Gastric banding is present. Distal esophageal thick ening is unchanged compared to prior exam. Nodes and vessels: No retroperitoneal or mesenteric adenopathy by size criteria. Aorta and inferior vena cava are normal in size. Miscellaneous: Fat containing ventral hernia is present. PELVIS: Genitourinary: Bladder is collapsed with a Price catheter, limiting evaluation. Miscellaneous: No inguinal hernias or adenopathy. Bones: No suspicious bony lesions. No vertebral body compression fractures. Posterior lumbar fixat ion is present. Pedicular screws are noted to be along the peripheral margin of the vertebral body at L5 and to a lesser extent left S1, unchanged. IMPRESSION: 1. Nonspecific streaky opacities within the lungs as above. This could be related to atelectasis. Dev eloping pneumonia cannot be definitively excluded. 2. Cholelithiasis. 3. Patchy areas of decreased enhancement within the left kidney as above. This can be seen with infec tion or inflammation such as pyelonephritis. Recommend correlation to laboratory values. Other etiolo gies could include renal infarction or potentially infiltrating lesion. Dictated by: Alysia Peña M.D. on 09/18/2016 at 21:08 Approved by: Alysia Peña M.D. on 09/18/2016 at 21:14
[2016-09-19] VITALS (8 sets, daily range): BP systolic 137–175; BP diastolic 81–113; PULSE 52–68; RESP 18–20; O2SAT 93–96
--- NOTE | 2016-09-19 04:53 | NUR ---
PAIN Pt complained of back pain 3-5/10 during the night x2. Administered Morphine IV push, 1mg ineffective. 2mg, effective. Pt resting with eyes closed. No further complaints of pain or discomfort. Call light within reach, using appropriately. Frequent turning during the night. Pleasant and cooperative with care.
[2016-09-19 06:42] LABS: BASOPHILS % (AUTO) 0.3 % (0-3); MONOCYTES % (AUTO) 9.3 % (4-12); Mean Corpuscular Hemoglobin 26.5 pg (27.0-35.0); Mean Corpuscular Volume 81.2 fL (81-100); NEUTROPHILS % (AUTO) 76.1 % (40-74); Platelet Count 218 bil/L (150-400)
[2016-09-19] MEDS: Insulin LISPRO 300 Unit/3 mL Inj SUBQ SCH ×4 (08:00→22:00)
--- NOTE | 2016-09-19 12:53 | NUR ---
Social Work note - Initial Assessment Svitlana Ireland is a 76 yr old admitted for fever, confusion. EMR reviewed: Pt has Medicare and navabi insurance. Her PCP is Ashia Blank. Readmit score is 4 - high. No VA or LTC insurance. ASSISTANT SPA MANAGER provided DPOA paperwork. See attached CM initial assessment. ASSISTANT SPA MANAGER met with pt - introduced D/C planning and explained SW role. ASSISTANT SPA MANAGER provided D/C planning checklist and provided contact phone number. Pt lives at home with her . She is bedbound and wheelchair bound at baseline. She has multiple wheel chairs, commode, shower bench and adaptive equipment at home. Her is her caregiver. He states that he would like to have home health provide support at home, but is not interested in SNF or AL at this time. ASSISTANT SPA MANAGER explored HH - He states he has no preference on provider - ASSISTANT SPA MANAGER provided Choices list - Consulted Vendor calendar - FREDDIE MULLER identified. ASSISTANT SPA MANAGER discussed with MD - will ask for order for [employer]OH[facility] RN PT [employer]IEF [employer]ER. PT evaluation recommended. Plan: Likely home with FREDDIE MULLER RN PT RELIEF MAP MODELER with providing transportation. APOLINAR Bates Addendum: 09/19/16 at 1258 by RADHA BSES SS Amended: Links added.
[2016-09-19] MEDS: Heparin 5,000 Unit/mL Inj SUBQ SCH ×2 (14:38→20:30)
--- NOTE | 2016-09-19 15:35 | NUR ---
Ambulation Pt ambulated with RN and an aide using FWW. 1/ of loop made when tele called reported pts HR at 160. Pt denied feeling SOB, dizzy, fatigued. Per tele, HR >100 for 5 min, now at rest, now back at 80 bpm at rest. Addendum: 09/19/16 at 1743 by CAROLE MEYER RN Dismiss above note, reported on wrong pt.
--- NOTE | 2016-09-19 17:03 | PCM.PNMED ---
Subjective Date of Service Sep 19, 2016 Subjective Denies any new issues/complaints Exam Vital Signs Vital Sign - Last Date Time Temp Pulse Resp B/P Pulse Ox O2 Delivery O2 Flow Rate FiO2 09/19/16 13:01 37.2 57 18 160/113 95 Room Air 09/19/16 01:11 1.00 Intake and Output 09/18/16 09/18/16 09/19/16 Cumulative From/Thru 15:00 23:00 07:00 09/16/16 19:11 - 09/19/16 06:11 Intake Total 1489 ml 1499 ml 3108 ml Output Total 350 ml 1200 ml 2100 ml Balance 1139 ml 299 ml 1008 ml Intake Oral 636 ml 710 ml 1466 ml IV Total 853 ml 789 ml 1642 ml Output Urine Total 350 ml 1200 ml 2100 ml # Voids 2 # Bowel Movements 0 0 Exam General: No Acute Distress, much more alert today Head: Normal Eyes: PERRLA, EOMI, Scleral Anicteric Nose: Mucous Membr Moist/[place] Mouth: Mucous Membr Moist/[place] Neck: Supple Chest & Lungs: Chest Wall Normal, Clear to auscultation bilat Cardiovascular: Regular Rate/Rhythm Pulses: NL DP, PT Abdomen: Non-Tender, Non-distended, Normoactive bowel tones, Soft Extremities: No cyanosis/clubbing/edema bilat Neurological: Non-focal IVs and Medications Medications Reviewed: Medications were reviewed in detail Lab and Diagnostics Result Diagram: 09/19/16 0555 09/18/16 0608 X-Rays, CTs and MRIs (09/17/16) CT BRAIN WITHOUT CONTRAST IMPRESSION: No acute intracranial abnormality is seen. Moderate atrophy and microvascular ischemic change from age and is present. Dictated and approved by: Chava Tavera M.D. on 09/16/2016 at 20:02 (09/16/16) X-RAY CHEST ONE VIEW, PORTABLE IMPRESSION: Acute disease is not seen a semiupright portable chest. Probable small hiatal hernia. Dictated and approved by: Chava Tavera M.D. on 09/16/2016 at 19:47 Date of Service: 09/18/16 0748 PROCEDURE: MRI LUMBAR SPINE WITH AND WITHOUT CONTRAST ([id number]) IMPRESSION: 1. Somewhat limited study given marked susceptibility artifact from the extensive hardware throughout the lumbar spine. 2. No suspicious marrow enhancement or enhancement of the paraspinous soft tissues to suggest infection; however given the limitations of the study, if there is high clinical suspicion for occult infection, nuclear medicine study may be helpful to further characterize findings. 3. Severe degenerative changes and vertebral body height loss at L1-L2. These findings are similar in extent to the study dated 08/24/16. Additionally, when these findings are compared with the CT of the abdomen dated 09/13/12, the extent of degenerative changes likely similar at the L1-2 level. 4. Severe canal stenosis at L1-L2 and moderate canal stenosis at L2-3. 5. Moderate bilateral foraminal narrowing at L1-L2, and moderate right foraminal narrowing at L2-3, L4-5, and L5-S1. Dictated by: Miriam Haines M.D. on 09/18/2016 at 10:46 Approved by: Miriam Haines M.D. on 09/18/2016 at 12:45 Date of Service: 09/18/16 1732 PROCEDURE: CT CHEST, ABDOMEN AND PELVIS [facility] CONTRAST ([id number]) IMPRESSION: 1. Nonspecific streaky opacities within the lungs as above. This could be related to atelectasis. Developing pneumonia cannot be definitively excluded. 2. Cholelithiasis. 3. Patchy areas of decreased enhancement within the left kidney as above. This can be seen with infection or inflammation such as pyelonephritis. Recommend correlation to laboratory values. Other etiologies could include renal infarction or potentially infiltrating lesion. Dictated by: Alysia Peña M.D. on 09/18/2016 at 21:08 Approved by: Alysia Peña M.D. on 09/18/2016 at 21:14 Assessment & Plan 76-year-old woman with a history of hypertension, diabetes, sleep apnea, frequent UTIs, and lap band who presented to the emergency department via EMS with increased confusion for the past 1-2 days. Admitted for further evaluation and management of altered mental status. # Acute altered mental status likely acute encephalopathy. Present on admission. Resolved -Initially suspected possibly secondary to medication side effect (lorazepam) and/or underlying infection. -UA without obvious sings of infection, blood alcohol <0.10 -CT brain showed no acute intracranial abnormality -Lumbar spine MRI ruled out abscess/infection -? If presenting symptoms due to silent seizure or post-ictal sate. Will order EEG # Acute leukocytosis. Present on admission. Improving -Unknown source of infection. Patient reported by EMS to be febrile in the filed ; afebrile here thus far. -Urinarlysis at presentation was negative. Chest xray with no acute disease -Blood cultures, pending -Post one dose of IV Zosyn in ED to cover for possible aspiration -Abx not continued due to negative CXR and no obvious source of infection at this time -ID consulted. will f/u w/ recs # Abd CT 09/18 showing: "Patchy areas of decreased enhancement within the left kidney as above. This can be seen with infection or inflammation such as pyelonephritis. Recommend correlation to laboratory values. Other etiologies could include renal infarction or potentially infiltrating lesion." -UA was negative -Followup # Diabetes mellitus, chronic. Present on admission. Presumed stable. -Hold Metformin -Low-dose correctional insulin ordered # Hypertension, chronic. Present on admission. Stable. -Continue with home dose Lisinopril. # Hyperlipidemia, chronic. Present on admission. Presumed stable. -Continue with home meds. # Hypothyroidism, chronic. Present on admission. Presumed stable. -Continue with home meds # History of depression, chronic. Present on admission. Presumed stable. -Continue with home meds -Hold lorazepam in setting of altered mental status # Lap band in place, chronic. Present on admission. Presumed stable. -CT Abd as noted above # History of sleep apnea, reported use of home CPAP. Present on admission. -Supplemental oxygen as needed overnight -Home CPAP Dispo: 1-2 days pending above workup GI Prophylaxis: Not indicated VTE Prophylaxis: Sub-Q Heparin (Unfractionated) VTE Mechanical Devices: Intermittant Pneumatic CD Resuscitation Status: CPR: Attempt Resuscitation Jarad Oliver Sep 19, 2016 17:03
--- NOTE | 2016-09-19 17:45 | NUR ---
Pain Alert and mostly oriented pt. Family states pt appears improved today from yesterday. Is more oriented and "able to crack a joke", per . Pt c/o generalized pain. Morphine ineffective. PRN PO meds given fairly routinely.
--- NOTE | 2016-09-20 03:42 | NUR ---
AGITATED Pt told she wanted to go home tonight and became agitated and tried to pull gonzalez catheter out when told her no. Pt stated, "I hate him. I want a divorce. Let me out of here. I want this thing out of me." RN educated pt about the need for her to remain in hospital and to have scheduled EEG completed. Pt verbalized understanding and agreed to stay the night for EEG and verbalized agreement to leave gonzalez catheter in place. Pt son/daughter in law concerned about pt not getting Ativan from home medication list stating, "She needs to be taking her Ativan. She has been taking this for 30yrs." notified. New order: Seroquel. Administered Seroquel, effective. Pt resting in bed. Pleasant and cooperative with care.
[2016-09-20 05:07] VITALS: BP 179/77; PULSE 62; RESP 18; O2SAT 94
[2016-09-20 07:44] LABS: BASOPHILS % (AUTO) 0.5 % (0-3); EOSINOPHILS % (AUTO) 1.6 % (0-5); MONOCYTES % (AUTO) 9.8 % (4-12); Mean Corpuscular Hemoglobin 26.5 pg (27.0-35.0); Mean Corpuscular Volume 82.5 fL (81-100); NEUTROPHILS % (AUTO) 72.1 % (40-74); Platelet Count 223 bil/L (150-400)
[2016-09-20] MEDS: Heparin 5,000 Unit/mL Inj SUBQ SCH ×3 (07:54→20:30)
[2016-09-20] MEDS: Insulin LISPRO 300 Unit/3 mL Inj SUBQ SCH ×4 (07:54→22:00)
[2016-09-20 09:08] LABS: APPEARANCE,URINE CLEAR (CLEAR,HAZY); COLOR,URINE YELLOW (YELLOW)
[2016-09-20 09:09] LABS: OCCULT BLOOD,URINE TRACE (NEGATIVE); PH,URINE 7.5 (5.0-8.0)
[2016-09-20 10:00] VITALS: BP 186/83; PULSE 62; RESP 18; O2SAT 96
[2016-09-20 10:37] VITALS: PULSE 67
--- NOTE | 2016-09-20 11:03 | CONS ---
[address] [address] CONSULTATION REPORT PATIENT: NIGEL EVANS : 1940 MR#: [id number] ADMIT: 09/17/2016 JOB ID: [id number] DATE OF SERVICE: 09/20/[address] Oliver for this timely consult. REASON FOR CONSULTATION: Unexplained leukocytosis and confusion. HISTORY OF PRESENT ILLNESS: The patient is a 76-year-old woman whose past medical history consists of diabetes, hypertension, hypothyroidism, coronary artery disease, and a history of extensive back surgery about a decade ago which subsequently became infected and has left her with chronic severe back pain and difficulty with ambulation. She was in her usual state of compensated health and able to walk only short distances with a walker at home until she was admitted to this facility on September 17 with confusion and decreased memory and functional status. Apparently the patient was found slumped over on a bedside commode and had been deteriorating for a day or two. It was reported that the patient was taking significant amounts of lorazepam as well as perhaps codeine containing pain medication. There was no history, however, of antecedent fevers, chills, sweats, cough, or notable GI symptoms. At the patient was admitted she was not really able to give any history on her own. She was appropriately worked up and found to have a leukocytosis of 19,000 of unknown source. She was started on Zosyn but only received a single dose before it was discontinued as was really not much to suggest infection except the high white count. Over the intervening three and a half days here in the hospital the patient has steadily improved. She has had a declining white count, no fevers, and an improving mental status. This morning we had the opportunity to interview the patient in the presence of her . The patient is awake and oriented at this point and able to tell us that she feels about at her baseline. She specifically denies at this point, headache, visual change sore throat, or cough. She has no significant chest pain or shortness of breath. No nausea, vomiting, or diarrhea. She is uncertain as to the events that landed her here in the hospital three and a half days ago, but is now much improved and both she and her are talking about going home. PAST MEDICAL HISTORY: 1. Diabetes. 2. Hypertension. 3. Depression. 4. Anxiety requiring lorazepam. 5. Hypothyroidism. 6. History of UTIs. 7. Coronary artery disease. 8. Lap band for morbid obesity with profound weight loss, but erosion of the lap band apparently into the distal esophagus. 9. Obstructive sleep apnea. 10. Failed back surgery for spinal stenosis with subsequent Staphylococcus infection and issues with the hardware resulting in limited ambulation. 11. Status post right hip replacement. SOCIAL HISTORY: The patient smoked about 60 years ago, not since. She does not consume alcohol. She lives at home in [place] with her . FAMILY HISTORY: Negative for tuberculosis in first or second-degree relatives. REVIEW OF SYSTEMS: No headache. No significant visual change. No sore throat. No significant cough, shortness of breath, or chest pain. No nausea, vomiting, diarrhea, or dysuria. No particular new problems with the back, but as mentioned it is quite dysfunctional. No swollen joints or other notable rheumatologic abnormalities. No skin rash. Remainder of the review of systems negative. PHYSICAL EXAMINATION: Reveals an afebrile woman. Temp 36.9, pulse 90, respiratory rate 18, blood pressure 179/77. She is saturating well on room air. She is awake and alert. Head without trauma, no temporal wasting. Eyes without conjunctivitis. No scleral icterus. Nose normal. Oral cavity, no thrush or hairy leukoplakia. Neck without adenopathy or JVD. Lungs fairly clear. Cardiac tones with a 2/6 systolic murmur heard best along the lower left sternal border. The cardiac rhythm is regular with periods of irregularity likely secondary to PACs seen on EKG. The abdomen is soft and nontender without organomegaly or ascites. She does not have a Price catheter. There is no suprapubic tenderness. Extremities are reasonably well perfused. She can move all four extremities. She has good peripheral pulses in her feet and they are warm and well perfused. There is no evidence of acute synovitis or skin rash. LABORATORIES: Include a white count that was 20,000 when she came in, but only 77% neutrophils and the remainder was normal. Follow up blood cultures dropped each day over her four days here in the hospital and her white count is now completely normal 9400 normal diff. Her procalcitonins have been ranging between 0.12 and 0.27. They been measured on actually four occasions with no significant increase on any of them. Creatinine 0.53. LFTs totally normal. Urinalysis without white cells. Blood cultures negative. Urine culture likewise negative. IMAGING: Fairly extensive. A brain CT was done and shows moderate atrophy and microvascular disease in this 76-year-old woman. Lumbar MRI scan shows no suspicious enhancement of the paraspinous area, but was limited because of the scatter from the artifact from the metal. There is severe degenerative changes seen at L1-L2 and severe canal stenosis at L1-L2 as well as at L2-3, but nothing to suggest acute infection. We reviewed the chest, abdomen, and pelvis CT scan that was done shortly after admission. That film shows some probable atelectasis of the lungs, but not impressive in any way. Cholelithiasis is also seen and there is some patchy areas of decreased enhancement in the left kidney, which could be consistent with pyelo. IMPRESSION: I see no evidence for infection in this woman. She was admitted with leukocytosis and confusion, but her cultures have been negative and her mental status has fairly rapidly returned to normal coincident with improvement back to normal in her white count. The abnormal images of the kidney are nonspecific and will need to be followed up, but I see nothing in the case that would suggest pyelonephritis as she has no fevers, chills, flank tenderness, leukocytosis, or pyuria. RECOMMENDATIONS: 1. No antibiotics. 2. The patient has tried nearing the point she could be discharged. 3. She will need follow up of that abnormal CT of the kidney. 4. ID will go ahead and sign off at this time.
[2016-09-20 14:04] VITALS: BP 167/75; PULSE 71; RESP 16; O2SAT 95
--- NOTE | 2016-09-20 14:12 | PROCED ---
[address] [address] EEG PATIENT: NIGEL EVANS : 1940 MR#: [id number] ADMIT: 09/17/2016 JOB ID: [id number] DATE: 09/20/2016 REQUESTING PHYSICIAN: Jarad Oliver M.D. CLINICAL HISTORY: The patient is a 76-year-old female with confusion, history of depression and sleep apnea currently not on any antiepileptic medications. TECHNICAL DESCRIPTION: This digital EEG was recorded using a 25 scalp and ear electrode placement in the 10/20 international electrode placement system with two EKG electrodes. It was reviewed in the bipolar and referential montages. DESCRIPTION: While awake and with eyes closed, there are 7 hertz rhythmic and symmetric waveforms seen over the occipital head region. These attenuate with eye opening. The patient is restless throughout the recording at which time muscle artifact interferes with the recording. The patient does not appear to enter sleep. There are no focal, lateralizing or epileptiform abnormalities seen throughout the recording. Activation: Photic activation does not reveal any photic driving and no photoparoxysmal discharges. Hyperventilation was not performed. EKG rhythm strip with irregular heart rate noted throughout the recording. IMPRESSION: Borderline electroencephalogram due to slowing. There were no focal lateralizing or epileptiform abnormalities seen throughout the recording. There were no electrophysiologic seizures to explain the patient's confusion. Of note, is irregular heart rate. If the patient is not on telemetry, recommend doing so since irregularity suggests atrial fibrillation. Clinical correlation advised.
--- NOTE | 2016-09-20 16:17 | PCM.PNMED ---
Subjective Date of Service Sep 20, 2016 Subjective Patient alert and interactive today. She is almost back to baseline per family member at the bedside Exam Vital Signs Vital Sign - Last Date Time Temp Pulse Resp B/P Pulse Ox O2 Delivery O2 Flow Rate FiO2 09/20/16 14:04 36.9 71 16 167/75 95 Room Air 09/19/16 01:11 1.00 Intake and Output 09/19/16 09/19/16 09/20/16 Cumulative From/Thru 15:00 23:00 07:00 09/16/16 19:11 - 09/20/16 06:20 Intake Total 2542 ml 118 ml 5768 ml Output Total 600 ml 1100 ml 3800 ml Balance 1942 ml -982 ml 1968 ml Intake Oral 1666 ml 118 ml 3250 ml IV Total 876 ml 2518 ml Output Urine Total 600 ml 1100 ml 3800 ml # Voids 2 # Bowel Movements 0 Exam General: No Acute Distress, much more alert today Head: Normal Eyes: PERRLA, EOMI, Scleral Anicteric Nose: Mucous Membr Moist/[place] Mouth: Mucous Membr Moist/[place] Neck: Supple Chest & Lungs: Chest Wall Normal, Clear to auscultation bilat Cardiovascular: Regular Rate/Rhythm Pulses: NL DP, PT Abdomen: Non-Tender, Non-distended, Normoactive bowel tones, Soft Extremities: No cyanosis/clubbing/edema bilat Neurological: Non-focal IVs and Medications Medications Reviewed: Medications were reviewed in detail Lab and Diagnostics Result Diagram: 09/20/16 0730 09/20/16 0730 X-Rays, CTs and MRIs (09/17/16) CT BRAIN WITHOUT CONTRAST IMPRESSION: No acute intracranial abnormality is seen. Moderate atrophy and microvascular ischemic change from age and is present. Dictated and approved by: Chava Tavera M.D. on 09/16/2016 at 20:02 (09/16/16) X-RAY CHEST ONE VIEW, PORTABLE IMPRESSION: Acute disease is not seen a semiupright portable chest. Probable small hiatal hernia. Dictated and approved by: Chava Tavera M.D. on 09/16/2016 at 19:47 Date of Service: 09/18/16 0748 PROCEDURE: MRI LUMBAR SPINE WITH AND WITHOUT CONTRAST ([id number]) IMPRESSION: 1. Somewhat limited study given marked susceptibility artifact from the extensive hardware throughout the lumbar spine. 2. No suspicious marrow enhancement or enhancement of the paraspinous soft tissues to suggest infection; however given the limitations of the study, if there is high clinical suspicion for occult infection, nuclear medicine study may be helpful to further characterize findings. 3. Severe degenerative changes and vertebral body height loss at L1-L2. These findings are similar in extent to the study dated 08/24/16. Additionally, when these findings are compared with the CT of the abdomen dated 09/13/12, the extent of degenerative changes likely similar at the L1-2 level. 4. Severe canal stenosis at L1-L2 and moderate canal stenosis at L2-3. 5. Moderate bilateral foraminal narrowing at L1-L2, and moderate right foraminal narrowing at L2-3, L4-5, and L5-S1. Dictated by: Miriam Haines M.D. on 09/18/2016 at 10:46 Approved by: Miriam Haines M.D. on 09/18/2016 at 12:45 Date of Service: 09/18/16 9242 PROCEDURE: CT CHEST, ABDOMEN AND PELVIS WTIH CONTRAST ([id number]) IMPRESSION: 1. Nonspecific streaky opacities within the lungs as above. This could be related to atelectasis. Developing pneumonia cannot be definitively excluded. 2. Cholelithiasis. 3. Patchy areas of decreased enhancement within the left kidney as above. This can be seen with infection or inflammation such as pyelonephritis. Recommend correlation to laboratory values. Other etiologies could include renal infarction or potentially infiltrating lesion. Dictated by: Alysia Peña M.D. on 09/18/2016 at 21:08 Approved by: Alysia Peña M.D. on 09/18/2016 at 21:14 Assessment & Plan 76-year-old woman with a history of hypertension, diabetes, sleep apnea, frequent UTIs, and lap band who presented to the emergency department via EMS with increased confusion for the past 1-2 days. Admitted for further evaluation and management of altered mental status. # Acute altered mental status likely acute encephalopathy. Present on admission. Resolved -Initially suspected possibly secondary to medication side effect (lorazepam) and/or underlying infection. -UA without obvious sings of infection, blood alcohol <0.10 -CT brain showed no acute intracranial abnormality -Lumbar spine MRI ruled out abscess/infection - EEG unrevealing # Acute leukocytosis. Present on admission. Resolved -Initial WBC 19.9, improved to 9.4. procal trending down, 0.12 currently -Unknown source of infection. Patient reported by EMS to be febrile in the filed ; afebrile here thus far. -Urinarlysis at presentation was negative. Chest xray with no acute disease -Blood cultures, pending -Post one dose of IV Zosyn in ED to cover for possible aspiration -Abx not continued due to negative CXR and no obvious source of infection at this time -ID consulted. agree with no antibiotics # Hypertension, chronic. Present on admission. Stable. -Continued with home dose Lisinopril. Increased from 5 to 10 mg today due to uncontrolled hypertension -May need to add meds # Abd CT 09/18 showing: "Patchy areas of decreased enhancement within the left kidney as above. This can be seen with infection or inflammation such as pyelonephritis. Recommend correlation to laboratory values. Other etiologies could include renal infarction or potentially infiltrating lesion." -UA was negative -Followup outpatient with repeat imaging # Diabetes mellitus, chronic. Present on admission. Presumed stable. -Hold Metformin -Low-dose correctional insulin ordered # Hyperlipidemia, chronic. Present on admission. Presumed stable. -Continue with home meds. # Hypothyroidism, chronic. Present on admission. Presumed stable. -Continue with home meds # History of depression, chronic. Present on admission. Presumed stable. -Continue with home meds -Hold lorazepam in setting of altered mental status # Lap band in place, chronic. Present on admission. Presumed stable. -CT Abd as noted above # History of sleep apnea, reported use of home CPAP. Present on admission. -Supplemental oxygen as needed overnight -Home CPAP Dispo: Possible discharge to Home with tomorrow if blood pressure is controlled GI Prophylaxis: Not indicated VTE Prophylaxis: Sub-Q Heparin (Unfractionated) VTE Mechanical Devices: Venous Foot Pump Resuscitation Status: CPR: Attempt Resuscitation Paulo Gallo MD Sep 20, 2016 16:17
--- NOTE | 2016-09-20 16:56 | NUR ---
Meds Pt very aggreable to care this shift. No agitation or yelling by pt this shift. present at bedside. She is forgetful at times but will remember facts eventually when prompted by . She had a lot of pain in her back, she does not tolerate sitting up well. Wanted to turn herself from side to side this shift which she was able to do incrementally. Medicated with oxy and tylenol as well as morphine throughout shift. Pt will state pain decreased but will still call the pain 5/10 which is where it was prior to med administration.
[2016-09-20 17:09] VITALS: BP 161/89; PULSE 60; RESP 16; O2SAT 95
--- NOTE | 2016-09-20 17:10 | NUR ---
Price Removal Price removed without issue. Pt aware to notify staff when she has to urinate.
[2016-09-20 21:46] VITALS: BP 193/99; PULSE 63; RESP 18; O2SAT 94
[2016-09-21 05:32] VITALS: BP 189/100; PULSE 87; RESP 18; O2SAT 94
[2016-09-21 05:37] VITALS: PULSE 55
--- NOTE | 2016-09-21 06:19 | NUR ---
Mentation Pt daughter reports pt "wants to and she is done." Pt refused to drink any fluids during most of the night. RN educated pt on the importance of fluids and the need for her to urinate after removing gonzalez. Bladder scanned, 224 mls.Pt told RN' "to go to hell." Pt offered fluids q1 hr. Pt eventually began taking sips of water with urine output 100cc. Continuing to monitor fluid intake and urine output. Call light within reach.
--- NOTE | 2016-09-21 06:24 | NUR ---
Pain Pt complained of pain 5/10. Administered Morphine IV push, not effective. Pt reports back pain increased to 8/10. Administered Roxicodone, effective. Pt resting with eyes closed. No further complaints of pain or discomfort. No s/sx of discomfort at this time. Continuing to monitor. Call light within reach. Daughter at bedside.
[2016-09-21] MEDS: Insulin LISPRO 300 Unit/3 mL Inj SUBQ SCH ×2 (07:41→12:00)
[2016-09-21 08:00] VITALS: PULSE 104
[2016-09-21] MEDS: Heparin 5,000 Unit/mL Inj SUBQ SCH ×2 (08:49→15:43)
[2016-09-21 10:10] VITALS: BP 213/130; PULSE 90; RESP 16; O2SAT 94
[2016-09-21] MEDS ORDERED: Labetalol 5 mg/mL 4 mL Inj IVPUSH ONE (11:05)
--- NOTE | 2016-09-21 11:37 | NUR ---
Evaluation completed. Please go to "Notes" then click on "Assessments and Notes" (bottom left corner of screen). Then select appropriate discipline tab on top of screen.
--- NOTE | 2016-09-21 12:08 | NUR ---
Social Work: Continued d/c planning / multidisciplinary rounds / Readiness for d/c Data: Pt is on day 4 of hospitalization. EMR reviewed. Pt discussed in rounds, MD states pt likely ready for d/c today. PT recommending SNF at this time with BLS transportation. MD ordered SNF, PHYSICAL THERAPY PROFESSOR acknowledges this. PHYSICAL THERAPY PROFESSOR spoke with pt and spouse, role explained. SNF choice list given. First choice is [facility], second choice is [facility]. PHYSICAL THERAPY PROFESSOR gave access to both, referred to [facility], spoke with Chase who will call PHYSICAL THERAPY PROFESSOR back shortly regarding decision. Assessment: Pt needing SNF. Plan: Referral sent to [facility], not yet to [facility]. Pt likely to d/c today to SNF possibly via BLS. PHYSICAL THERAPY PROFESSOR will continue to follow. ILYA Ponce
[2016-09-21 12:29] VITALS: BP 102/65; PULSE 66; RESP 16; O2SAT 94
--- NOTE | 2016-09-21 12:33 | NUR ---
[facility] accept pt with Dr Francis to follow ILYA Ponce
--- NOTE | 2016-09-21 12:52 | PCM.DIMED ---
Discharge Instructions Date of Service Sep 21, 2016 Dates of Hospitalization Sep 17, 2016 at 00:01 Discharge Diagnosis Discharge Diagnosis # Acute altered mental status likely acute encephalopathy. Present on admission. Resolved possibly secondary to medication side effect (lorazepam) # Acute leukocytosis. Present on admission. Resolved # Hypertension, chronic. Present on admission. Stable. # Abd CT 09/18 showing: "Patchy areas of decreased enhancement within the left kidney as above. This can be seen with infection or inflammation such as pyelonephritis. Recommend correlation to laboratory values. Other etiologies could include renal infarction or potentially infiltrating lesion." # Diabetes mellitus, chronic. Present on admission. Presumed stable. # Hyperlipidemia, chronic. Present on admission. Presumed stable. # Hypothyroidism, chronic. Present on admission. Presumed stable. # History of depression, chronic. Present on admission. Presumed stable. # Lap band in place, chronic. Present on admission. Presumed stable. # History of sleep apnea, reported use of home CPAP. Present on admission. Test Results Test Results CT abdomen :Patchy areas of decreased enhancement within the left kidney as above. This can be seen with infection or inflammation such as pyelonephritis. Recommend correlation to laboratory values. Other etiologies could include renal infarction or potentially infiltrating lesion. Diet Discharge Diet: Low fat, Low Sodium, Heart Healthy Activity Discharge Activity: Limited until seen by PCP Call your provider Call your provider for: Fever or Chills, Shortness of breath, Bleeding, Chest pain, Vomitting, Excessive diarrhea, Weakness (unilateral) Patient Instructions Patient Instructions You were hospitalized due to acute encephalopathy. Etiology remains unclear but probably due to inadvertently taking excessive lorazepam. You had uncontrolled hypertension, I increased your lisinopril from 5 mg to 10 mg daily.I added amlodipine 5 mg daily. [facility]. You were noted to have left kidney nonspecific lesion on CT scan. Please follow-up with PCP in [address] scan of abdomen to evaluate left kidney lesion. Follow-up with PCP in: 1 week Paulo Gallo MD Sep 21, 2016 12:52
[2016-09-21] MEDS ORDERED: QUET25TA73 PO (12:55)
[2016-09-21] MEDS ORDERED: AMLO5TAB2 PO (12:55)
[2016-09-21] MEDS ORDERED: OXYC1TAB24 PO (12:55)
[2016-09-21] MEDS ORDERED: LISI-571 PO (12:55)
[2016-09-21 14:42] VITALS: BP 130/80; PULSE 69; RESP 16; O2SAT 95
--- NOTE | 2016-09-21 14:58 | NUR ---
Social Work: Discharge Data: Pt is on day 4 of hospitalization. EMR reviewed. [facility] can accept pt today with Dr Francis to follow. Cabulance transportation set up for 4:30pm today. JR. JAVA DEVELOPER notified pt, RN, UA, and MD. No further d/c planning needs at this time. JR. JAVA DEVELOPER will continue to follow if needs arise. Assessment: Pt in wheel chair at baseline, caregiving by spouse. Plan: pt will d/c to [facility] with Dr Francis to follow via cabulance at 4:30pm. No further d/c planning needs at this time. JR. JAVA DEVELOPER will continue to follow if needs arise. ILYA Ponce
--- NOTE | 2016-09-21 16:42 | NUR ---
Discharge Patient departed unit via wheelchair, accompanied by spouse and transport staff. Patient alert to self and place, but forgetful. Patient reporting pain 4/10 back pain, which is better than the 8/10 this morning. Patient continues to need encouragement for adequate food/fluid intake. Patient eliminating adequately. Discharge reviewed with patient and spouse prior to discharge. All questions addressed. Patient belongings, discharge instructions given to transport pilot. Report called to [facility].
--- NOTE | 2016-09-22 21:28 | PCM.DC.MED ---
Discharge Summary Date of Service Sep 22, 2016 Dates of Hospitalization Date of Hospital Admission Sep 17, 2016 at 00:01 Date of Discharge: Sep 21, 2016 Providers: Admitting Physician: Shari Mckinnon MD Primary Care Physician: Hal Attending Physician: Paulo Szymanski MD Diagnosis at Time of Discharge Diagnosis at Time of Discharge # Acute altered mental status likely acute encephalopathy. Present on admission. Resolved possibly secondary to medication side effect (lorazepam) # Acute leukocytosis. Present on admission. Resolved # Hypertension, chronic. Present on admission. Stable. # Abd CT 09/18 showing: "Patchy areas of decreased enhancement within the left kidney as above. This can be seen with infection or inflammation such as pyelonephritis. Recommend correlation to laboratory values. Other etiologies could include renal infarction or potentially infiltrating lesion." # Diabetes mellitus, chronic. Present on admission. Presumed stable. # Hyperlipidemia, chronic. Present on admission. Presumed stable. # Hypothyroidism, chronic. Present on admission. Presumed stable. # History of depression, chronic. Present on admission. Presumed stable. # Lap band in place, chronic. Present on admission. Presumed stable. # History of sleep apnea, reported use of home CPAP. Present on admission. Procedures XRay, CTs & MRIs (09/17/16) CT BRAIN WITHOUT CONTRAST IMPRESSION: No acute intracranial abnormality is seen. Moderate atrophy and microvascular ischemic change from age and is present. Dictated and approved by: Chava Tavera M.D. on 09/16/2016 at 20:02 (09/16/16) X-RAY CHEST ONE VIEW, PORTABLE IMPRESSION: Acute disease is not seen a semiupright portable chest. Probable small hiatal hernia. Dictated and approved by: Chava Tavera M.D. on 09/16/2016 at 19:47 Date of Service: 09/18/16 0748 PROCEDURE: MRI LUMBAR SPINE WITH AND WITHOUT CONTRAST ([id number]) IMPRESSION: 1. Somewhat limited study given marked susceptibility artifact from the extensive hardware throughout the lumbar spine. 2. No suspicious marrow enhancement or enhancement of the paraspinous soft tissues to suggest infection; however given the limitations of the study, if there is high clinical suspicion for occult infection, nuclear medicine study may be helpful to further characterize findings. 3. Severe degenerative changes and vertebral body height loss at L1-L2. These findings are similar in extent to the study dated 08/24/16. Additionally, when these findings are compared with the CT of the abdomen dated 09/13/12, the extent of degenerative changes likely similar at the L1-2 level. 4. Severe canal stenosis at L1-L2 and moderate canal stenosis at L2-3. 5. Moderate bilateral foraminal narrowing at L1-L2, and moderate right foraminal narrowing at L2-3, L4-5, and L5-S1. Dictated by: Miriam Haines M.D. on 09/18/2016 at 10:46 Approved by: Miriam Haines M.D. on 09/18/2016 at 12:45 Date of Service: 09/18/16 1732 PROCEDURE: CT CHEST, ABDOMEN AND PELVIS WTIH CONTRAST ([id number]) IMPRESSION: 1. Nonspecific streaky opacities within the lungs as above. This could be related to atelectasis. Developing pneumonia cannot be definitively excluded. 2. Cholelithiasis. 3. Patchy areas of decreased enhancement within the left kidney as above. This can be seen with infection or inflammation such as pyelonephritis. Recommend correlation to laboratory values. Other etiologies could include renal infarction or potentially infiltrating lesion. Dictated by: Alysia Peña M.D. on 09/18/2016 at 21:08 Approved by: Alysia Peña M.D. on 09/18/2016 at 21:14 ECG 12 Lead ECG Interpretation: Sinus rhythm with a rate of 81. RBBB and LAFB. No acute changes. Time: 19:35 Interpreted by: ED physician Brief History per HPI Svitlana Ireland is a 76-year-old woman with a history of hypertension, diabetes, sleep apnea, frequent UTIs, lap band and chronic constipation who presented to the emergency department via EMS with increased confusion for the past 1-2 days. History obtained via chart review due to patient condition and family in the emergency department. At presentation family expressed concerns regarding the patient's memory and her lorazepam. They felt she may be taking more than 3mg a day due to her forgetfulness. Patient was reportedly prescribed 1mg up to three times a day of Lorazepam. Patient was reported found by EMS slumped over on the commode and noted by family members to have gait disturbances, a blank stare with slurred, incoherent speech. Additionally, the family denied difficulty breathing, vomiting, or cough. abdominal pain. In the ED vitals: temp 37.2, BP 153/74, HR 83, RR 16, SpO2 93% on room air. Labs significant for a leukocytosis (WBC 19.9) with slight left shift, mildly elevated procalcitonin 0.16, lactic acid wnl (1.5), hyperglycemia (glucose 168) , and urinalysis without signs of infection. ECG showed sinus rhythm with a rate of 81, RBBB and LAFB with no acute changes. Chest Xray was negative for acute disease and showed a possible hiatal hernia. CT Head Interpretation showed no acute intracranial abnormalities, moderate atrophy and microvascular ischemic changes. Hospital Course 76-year-old woman with a history of hypertension, diabetes, sleep apnea, frequent UTIs, and lap band who presented to the emergency department via EMS with increased confusion for the past 1-2 days. Admitted for further evaluation and management of altered mental status. # Acute altered mental status/ acute encephalopathy. Present on admission. Resolved -likely secondary to medication side effect (lorazepam)/inadvertently taking more than prescribed in a demented patient .discontinued lorazepam and instructed family to follow closely medications in case if represcribed by PCP if indicated -UA without obvious sings of infection, blood alcohol <0.10 -CT brain showed no acute intracranial abnormality -Lumbar spine MRI ruled out abscess/infection - EEG unrevealing # Acute leukocytosis. Present on admission. Resolved -Initial WBC 19.9, improved to 9.4. procal trending down, 0.12 currently -Urinarlysis at presentation was negative. Chest xray with no acute disease -Blood cultures negative -Post one dose of IV Zosyn in ED to cover for possible aspiration -Abx not continued due to negative CXR and no obvious source of infection at this time -ID consulted. agree with no antibiotics # Hypertension, chronic. Present on admission. Stable. -Continued with home dose Lisinopril. Increased from 5 to 10 mg today due to uncontrolled hypertension -May need to add meds outpatient if unconrolled # Abd CT 09/18 showing: "Patchy areas of decreased enhancement within the left kidney as above. This can be seen with infection or inflammation such as pyelonephritis. Recommend correlation to laboratory values. Other etiologies could include renal infarction or potentially infiltrating lesion." -UA was negative -Followup outpatient with repeat imaging.family made aware # Diabetes mellitus, chronic. Present on admission. Presumed stable. -resume Metformin # Hyperlipidemia, chronic. Present on admission. Presumed stable. -Continue with home meds. # Hypothyroidism, chronic. Present on admission. Presumed stable. -Continue with home meds # History of depression, chronic. Present on admission. Presumed stable. -Continue with home meds -discontinue lorazepam in setting of altered mental status # Lap band in place, chronic. Present on admission. Presumed stable. -CT Abd as noted above # History of sleep apnea, reported use of home CPAP. Present on admission. -Supplemental oxygen as needed overnight -Home CPAP Dispo: discharge to [facility] Exam Vital Signs (Last) Date Time Temp Pulse Resp B/P Pulse Ox O2 Delivery O2 Flow Rate FiO2 09/21/16 14:42 36.9 69 16 130/80 95 09/21/16 05:32 Room Air 09/19/16 01:11 1.00 Exam General: No Acute Distress, much more alert today Head: Normal Eyes: PERRLA, EOMI, Scleral Anicteric Nose: Mucous Membr Moist/[place] Mouth: Mucous Membr Moist/[place] Neck: Supple Chest & Lungs: Chest Wall Normal, Clear to auscultation bilat Cardiovascular: Regular Rate/Rhythm Pulses: NL DP, PT Abdomen: Non-Tender, Non-distended, Normoactive bowel tones, Soft Extremities: No cyanosis/clubbing/edema bilat Neurological: Non-focal Test 09/16/16 19:00 09/16/16 21:36 09/17/16 07:50 09/18/16 06:08 Alcohols < 10mg/dL (0-10) Lactic Acid Level 1.5mmol/L (0.4-2.0) Hemoglobin A1c 5.8% (4.8-5.6) Total Bilirubin 0.7mg/dL (0.0-1.2) Aspartate Amino Transf (AST/SGOT) 42U/L (0-50) Alanine Aminotransferase (ALT/SGPT) 14U/L (0-32) Alkaline Phosphatase 114U/L (25-165) Total Protein 7.1g/dL (6.4-8.4) Albumin 3.4g/dL (3.4-5.0) Prothrombin Time 10.4sec (8.1-12.5) Prothromb Time International Ratio 0.97ratio Activated Partial Thromboplast Time 26.3sec (22.8-33.0) Magnesium Level 1.9mg/dL (1.6-2.6) Test 09/20/16 07:30 09/20/16 08:05 White Blood Count 9.4th/mm3 (3.8-10.1) Red Blood Count 4.46mil/mm3 (3.90-5.20) Hemoglobin 11.8g/dL (12.0-15.6) Hematocrit 36.8% (35.0-46.0) Mean Corpuscular Volume 82.5fL (81-100) Mean Corpuscular Hemoglobin 26.5pg (27.0-35.0) Mean Corpuscular Hemoglobin Concent 32.1% (32.0-37.0) Red Cell Distribution Width 14.7% (12.3-15.4) Platelet Count 223bil/L (150-400) Neutrophils (%) (Auto) 72.1% (40-74) Lymphocytes (%) (Auto) 15.7% (14-46) Monocytes (%) (Auto) 9.8% (4-12) Eosinophils (%) (Auto) 1.6% (0-5) Basophils (%) (Auto) 0.5% (0-3) Sodium Level 143mEq/L (134-144) Potassium Level 3.9mEq/L (3.5-5.2) Chloride Level 104mEq/L (97-108) Carbon Dioxide Level 24mmol/L (18-29) Blood Urea Nitrogen 10mg/dL (8-27) Creatinine 0.53mg/dL (0.57-1.00) Estimat Glomerular Filtration Rate 160mL/min (>59) Glucose Level 98mg/dL (60-99) Calcium Level 8.3mg/dL (8.5-10.1) Procalcitonin 0.12ng/mL (0.00-0.08) Urine Color Yellow (YELLOW) Urine Appearance Clear (CLEAR,HAZY) Urine pH 7.5 (5.0-8.0) Urine Specific [place] 1.010 (1.003-1.035) Urine Protein Negativemg/dL (NEG,TRACE) Urine Glucose (UA) Negativemg/dL (NEGATIVE) Urine Ketones Negativemg/dL (NEGATIVE) Urine Occult Blood Trace (NEGATIVE) Urine Nitrite Negative (NEGATIVE) Urine Bilirubin Negative (NEGATIVE) Urine Urobilinogen 2.0mg/dL (NORMAL) Urine Leukocyte Esterase Negative (NEGATIVE) Urine RBC 0-2/hpf (0-2) Urine WBC 0-5/hpf (0-5) Urine Epithelial Cells Occasional/hpf (NONE-MOD) Urine Crystals None seen (NONE SEEN) Urine Bacteria None/hpf (NONE-FEW) Urine Hyaline Casts None/lpf (NONE) Urine Granular Casts None seen (NONE SEEN) Urine Waxy Casts None seen (NONE SEEN) Urine Red Blood Cell Casts None seen (NONE SEEN) Urine White Blood Cell Casts None seen (NONE SEEN) Urine Mucus None seen (None Seen) Urine Trichomonas None seen (NONE SEEN) Urine Yeast None (NONE SEEN) Urinalysis Comment None Urine Culture Reflexed Not indicated Discharge Medications Discharge Medications Amlodipine (Amlodipine) 5 Mg Tablet 5 MG PO DAILY Prescribed by: PAULO SZYMANSKI MD Atorvastatin (Lipitor) 10 Mg Tab 10 MG PO HS (Reported) Bupropion (Bupropion) 100 Mg Tablet 100 MG PO BID (Reported) Levothyroxine (Levothyroxine) 137 Mcg Tablet Unknown Dose PO DAILY (Reported) Lisinopril (Lisinopril) 5 Mg Tablet 10 MG PO DAILY Prescribed by: PAULO SZYMANSKI MD Metformin (Metformin) 500 Mg Tablet 500 MG PO DAILY (Reported) Quetiapine Fumarate (Quetiapine Fumarate) 25 Mg Tablet 25 MG PO HS Prescribed by: PAULO SZYMANSKI MD As needed oxyCODONE-Acetaminophen 5-325 mg (oxyCODONE-Acetaminophen 5-325 mg) 1 Each Tablet 1 TAB PO Q6H PRN PRN For Pain Prescribed by: PAULO SZYMANSKI MD Followup Plan Disposition: SNF Discharge Diet: Low fat, Low Sodium, Heart Healthy Discharge Activity: Limited until seen by PCP Patient Instructions You were hospitalized due to acute encephalopathy. Etiology remains unclear but probably due to inadvertently taking excessive lorazepam. You had uncontrolled hypertension, I increased your lisinopril from 5 mg to 10 mg daily.I added amlodipine 5 mg daily. Please continue physical therapy at care home facility. You were noted to have left kidney nonspecific lesion on CT scan. Please follow-up with PCP in [address] scan of abdomen to evaluate left kidney lesion. Follow-up with PCP in: 1 week Time spent 35 minutes Paulo Szymanski MD Sep 22, 2016 21:28
== END 2016-09-21 16:31 | DRG 917 ==
LOC: SED 18:50 → EDBD 18:50 → MPC 09-17 00:01
PROVIDERS: ADMIT Specialist; ATTEND Internal Medicine
PROC: 4A00X4Z Measurement of Central Nervous Electrical Activity, External Approach (ICD-10-PCS; principal; 2016-09-20)
DX: T42.4X1A Poisoning by benzodiazepines, accidental (unintentional), initial encounter (principal); G93.40 Encephalopathy, unspecified; Z98.84 Bariatric surgery status; Z85.828 Personal history of other malignant neoplasm of skin; Z79.84 Long term (current) use of oral hypoglycemic drugs; E11.9 Type 2 diabetes mellitus without complications; I10 Essential (primary) hypertension; E78.5 Hyperlipidemia, unspecified; F32.9 Major depressive disorder, single episode, unspecified; G47.30 Sleep apnea, unspecified; D72.829 Elevated white blood cell count, unspecified